=== PATIENT | female | born 1965 | race Caucasian/White ===

== ENCOUNTER 2023-06-27 10:43 | Inpatient (IN) | payer OTHER, MEDICARE, SELFPAY ==
[2023-06-17 08:58] VITALS: BMI 28.3
[2023-06-27] VITALS (10 sets, daily range): BP systolic 103–146; BP diastolic 70–97; PULSE 50–86; RESP 12–20; TEMP 35.9–36.9; O2SAT 93–100; BMI 28.3
--- NOTE | 2023-06-27 | DI.RAD.S_ITS ---
PROCEDURE: XR LUMBAR SPINE 2-3V INDICATIONS: TLIF L4-5 TECHNIQUE: 2 views of the lumbar spine were acquired. COMPARISON: [facility], , LUMBAR SPINE INTERIAMINAR, 04/16/2022, 14:27. [facility], , LUMBAR MBB, 04/08/2023, 8:50. [facility], MR, MR LUMBAR SPINE WITHOUT CONTRAST, 03/14/2023, 17:22. FINDINGS: Bones: Frontal and lateral view show normal alignment established after placement of transverse pedicle screws and intervening dorsal vertical fixation rods with additional interbody disc prosthesis at L 4-5. Soft tissues: Overlying bowel gas pattern is normal. No suspicious soft tissue calcifications. Impression: Normal alignment established after L4-L5 posterior fusion bilaterally and placement of interbody disc prosthesis. Dictated by: Matias Maharaj M.D. on 06/27/2023 at 15:51 Approved by: Matias Maharaj M.D. on 06/27/2023 at 15:54
--- NOTE | 2023-06-27 12:17 | PM.PREOP ---
Pre-operative Note COVID-19 Criteria for continued procedure: Expected advancement of disease process, Possibility delay results in more complex future surgery or treatment, Increased loss of function, Continuing or worsening of significant or severe pain, Deterioration of the patient's condition or overall health and Delay expected to result in less-positive ultimate med/surg outcome Interval Note History & Physical reviewed/Exam performed by Physician: Yes Changes to H&P: No
[2023-06-27] MEDS: CEFAZOLIN 2 GM/100 ML PREMIX 100 ML IV ×2 (13:30→21:20)
--- NOTE | 2023-06-27 13:51 | SUR.OPER ---
Prone on spine table, head in foam head support, padded chest and pelvic supports, gel pad at knees, lower legs supported by pillows; nipples, genitalia and toes free of pressure, arms secured on foam padded arm boards at <90 degrees abduction. Tape over blanket at thigh secured to table.
[2023-06-27] MEDS: BUPIVACAINE 0.25% (PF) 60 ML, EPINEPHrine 0.15 MG INJ (13:56)
--- NOTE | 2023-06-27 15:08 | PM.OP.1 ---
Operative Date/Time/Diagnoses Date of procedure: 06/27/23 Time of procedure: 13:00 Pre-op diagnosis: 1. L4-5 recurrent disc herniation 2. L4-5 post laminectomy syndrome Post-op diagnosis: same Procedure & Clinicians Procedure: 1. L4-5 Postero-lateral and posterior interbody fusion 2. L4-5 interbody cage placement. 3. L4-5 decompressive laminectomy with bilateral facetecomies 4. L4-5 Posterior non-segmental instrumentation 5. [place] of bone marrow from iliac crest 6. Utilization of microsurgical technique and operating microscope Same procedure as scheduled: Yes Indications: Patient has been having chronic back pain and worsening lumbar radiculopathy. Patient had previous history of right L4-5 decompression with good relief. Patient has been having worsening radiculopathy on her right side due to recurrent disc herniation and nerve impingement. Patient failed multiple conservative management with worsening pain weakness and numbness in her lower extremity. Patient has been having difficulty performing activity of daily living. After discussing risks benefits of treatment options, patient elected proceed with surgery. Surgeon: Constanza Tanner Medical/Surgery Registered Nurse: Francine Hendricks Click Yes if Unassisted: No Anesthesia Type: General Operative Notes Closure Type: primary Specimen(s): none sent Prosthetic devices, grafts, tissues, transplants, or devices: Globus CREO MIS screws, Rise cage Estimated Blood Loss (mL): 50 Blood products transfused: none Procedure in detail: Patient was seen in the preoperative area. Risks and benefits of the surgery was discussed with the patient. Informed consent was obtained from the patient and placed in the chart. Surgical site was marked. Patient was taken to the operative room. General anesthesia was administered. Prophylactic antibiotic was given to the patient less than 30 min before the incision was made. Patient was placed into a prone position on the Dante table. Patient's back was then prepped and draped in the sterile fashion. Time-out was performed at this time. Using AP and lateral C-arm imaging the interval between L4-5 was identified and marked on patient's back. A 2 inch incision 2 in from midline was made on the right side first. The fascia was incised in line with skin incision. Globus MARS retractors was placed inside the incision and docked onto the L4 lamina. Using microsurgical technique and operating microscope, a L4 laminectomy and L4-5 facetectomy was performed using a Kerrison rongeur. The laminectomy and facetectomy was performed in order to decompress patient's cauda equina as well as the nerve roots exiting at the L4-5 level. The patient was found have significant amount of epidural scarring from the prior decompression. The scar tissue along with the recurrent disc herniation was carefully resected along with the diskectomy. The disc space at L4-5 was identified. And a total diskectomy was performed at L4-5 level. The endplates were decorticated using a rasp and shaver. The total diskectomy and decortication was performed at L4-5 level in order to to accomplish a L4-5 fusion. The local bone from the laminectomy and facetectomy was saved for local bone grafting. After the total diskectomy and decortication was completed, Trifecta bone graft material was combined with local bone that was harvested earlier. At this time, a separate skin is incision was made over the iliac crest. A Jamshidi needle was inserted into the iliac crest through a separate skin incision. 5 cc of bone marrow aspiration was obtained through the separate skin incision using a Jamshidi needle from the iliac crest. The bone marrow aspiration was combined with local bone and the Trifecta bone grafting material. The bone grafting material was placed into the L4-5 interbody space along with a expandable cage. The cage was expanded to its maximum height using the torque limiting screwdriver. At this time a mirror image incision was made on the left side. The fascia was incised in line with the skin incision. Globus MARS retractor was inserted and docked onto the L4-5 posterolateral gutter. Using the power drill, posterior-lateral decortication was performed at L4-5 level until bleeding cortical bone was identified. The remaining bone grafting material was placed into the L4-5 posterior lateral gutter he order to accomplish posterolateral fusion at the L4-5 level. Using the double C-arm technique, pedicle screws were placed into the L4-5 pedicles bilaterally. This was done by placing the Jamshidi needle into the pedicles, then placing the guidewires over the Jamshidi needle, and finally placing the cannulated screws over the guidewires bilaterally. After the pedicle screws were placed, 2 titanium rods was locked into the heads of the pedicle screws using locking caps and torque limiting screwdriver. After all the hardware was placed, and confirmed with AP and lateral C-arm imaging, the wound was then irrigated with sterile normal saline and packed with Ray-Jose L gauze for 3 min to accomplish hemostasis. After the gauze was removed the deep fascia was closed with #1 Vicryl suture. The subcutaneous layer was closed with 2-0 Vicryl. The skin was closed with skin floyd. Patient tolerated the procedure well. There were no complications. The Operation could not have been safely performed without compromising the technical result or length of the procedure, without the assistance of a skilled operating room surgical technician. The operating room surgical technician was medically necessary for proper positioning, retraction and manipulation of instruments, proper exposure, surgical preparation, and manipulation of tissue. Complications: none Post-operative Condition: stable Disposition: PACU Plan for aftercare: Admit to inpatient hospital
[2023-06-27] MEDS: HYDROMORPHONE 1 MG INJ IV ×2 (15:21→15:31)
[2023-06-27] MEDS: hydrOXYzine 50 MG/ML INJ 25 MG IM (15:39)
[2023-06-27] MEDS: fentaNYL 100 MCG/2 ML INJ IV (15:46)
[2023-06-27] MEDS: OXYCODONE/ACETAMINOPHEN 5/325 TABLET 1 TAB PO (15:50)
[2023-06-27] MEDS: ONDANSETRON 4 MG/2 ML INJ IV (15:52)
--- NOTE | 2023-06-27 16:15 | SUR.PHASEI ---
Patient has to be woken up to get pain score. Patient too drowsy and has too much respiratory depression to safely administer more pain medications at this time. Patient still states pain is 8/10 when aroused by voice.
[2023-06-27] MEDS: LACTATED RINGERS 1,000 ML 125 ML IV (16:35)
[2023-06-27] MEDS: OXYCODONE IR 10 MG TABLET PO ×3 (17:01→23:17)
--- NOTE | 2023-06-27 18:29 | PC.NURSE ---
Patient arrived from PACU at 1615 this afternoon. She is slightly lethargic but A&OX4, VSS on 2LNC. Dressing to low back c/d/i. Spouse at bedside supportive. Patient denies numbness and tingling to BLE's ( at baseline left lower extremity numbess > RLE). Patient tolerates dinner well and is able to stand at bedside without dizziness and void x1 large void. Call light in reach, instructed on IS, IVF LR @ 125 ml/hr, bed alarm on. Continuous monitoring.
[2023-06-27] MEDS: ACETAMINOPHEN 325 MG TABLET 650 MG PO (19:01)
[2023-06-27] MEDS: CYCLOBENZAPRINE 10 MG TABLET PO (19:04)
[2023-06-27] MEDS: DOCUSATE 100 MG CAPSULE PO (20:14)
[2023-06-27] MEDS: ATORVASTATIN 20 MG TABLET PO (20:14)
[2023-06-27] MEDS: ARIPiprazole 10 MG TABLET PO (20:14)
[2023-06-27] MEDS: SENNOSIDES 8.6 MG TABLET 17.2 MG PO (20:15)
[2023-06-27] MEDS: hydrOXYzine pamoate 25 MG CAPSULE PO ×2 (20:15→23:46)
[2023-06-27] MEDS: ESCITALOPRAM 10 MG TABLET 20 MG PO (20:15)
[2023-06-28] MEDS: hydrOXYzine pamoate 25 MG CAPSULE PO ×3 (02:59→12:07)
[2023-06-28] MEDS: OXYCODONE IR 10 MG TABLET PO ×3 (02:59→12:07)
[2023-06-28] MEDS: ACETAMINOPHEN 325 MG TABLET 650 MG PO ×2 (02:59→12:06)
[2023-06-28] MEDS: LACTATED RINGERS 1,000 ML 125 ML IV (04:29)
[2023-06-28] MEDS: CYCLOBENZAPRINE 10 MG TABLET PO ×2 (04:45→12:07)
[2023-06-28 05:00] VITALS: RESP 20; TEMP 37.7
[2023-06-28] MEDS: HYDROMORPHONE 0.5 MG INJ IV (05:23)
[2023-06-28] MEDS: CEFAZOLIN 2 GM/100 ML PREMIX 100 ML IV (05:24)
[2023-06-28] MEDS: PANTOPRAZOLE DR 40 MG TABLET PO (05:26)
[2023-06-28 07:42] VITALS: O2SAT 98
[2023-06-28] MEDS: DOCUSATE 100 MG CAPSULE PO (07:52)
[2023-06-28 08:00] VITALS: BP 129/72; PULSE 109; RESP 17; TEMP 36.8; O2SAT 92
--- NOTE | 2023-06-28 09:38 | PT.IIE ---
Current Diagnoses Other intervertebral disc displacement, lumbar region (06/27/23) Postlaminectomy syndrome, not elsewhere classified (06/27/23) Surgery Performed Operation Date: 06/27/23 12:15 Actual Procedures p L4-5 TLIF - Constanza Tanner MD Surgical History (Last Reviewed 06/28/23 @ 10:54 by Francine Hendricks PA-C) H/O toe surgery History of appendectomy (~1983) History of left salpingo-oophorectomy (~1997) History of surgery S/p bilateral carpal tunnel release S/P colonoscopic polypectomy (~2021) S/P exploratory laparotomy Medical History (Last Reviewed 06/28/23 @ 10:54 by Francine Hendricks PA-C) Asthma Easy bruising GERD (gastroesophageal reflux disease) History of alcohol abuse History of anxiety History of attention deficit disorder History of depression Hyperlipemia Hypothyroid Mitral valve regurgitation Type 2 diabetes mellitus Physical Therapy Inpatient Evaluation/Re-Eval M1 PT/OT-IP Prior Functional Status Start: 06/28/23 12:50 Freq: NEEDED Status: Active Protocol: Document 06/28/23 09:38 AB (Rec: 06/28/23 13:12 AB [email or web address]) Medical Review Prior Functional Status Medical History Reviewed Yes Communication able to make needs known but requires time to respond to questions and follow instructions Mobility and Gait significant other in room and provided pt's PLOF info and home set up: stated that pt is modified independent with all mobilities and ambulation wtihotu AD; leans on shopping cart for support when out doing groceries due to back pain Social History Household Members significant other Living Arrangements RV Number of Stairs To Enter/Railing? 3 steps L grab bar next to door frame to enter the house Home Environment Standard Height Toilet,Walk in Shower Home Equipment Front Wheel Walker,Straight Cane,Hand Held Shower Employment Status Unemployed Additional Social History Comment significant other stated that his mother lives next door and if needed, pt can go to his mother's house with a ramp to enter M2 PT-IP Current Condition Start: 06/28/23 12:50 Freq: NEEDED Status: Active Protocol: Document 06/28/23 09:38 AB (Rec: 06/28/23 13:12 AB [email or web address]) Physical Therapy Current Condition Current Condition Evaluation Date 06/28/23 Treatment Diagnosis s/p L4-5 TLIF; difficulty in walking Onset Date 06/27/23 M3 PT-IP Subjective Start: 06/28/23 12:50 Freq: NEEDED Status: Active Protocol: Document 06/28/23 09:38 AB (Rec: 06/28/23 13:12 AB [id number]) Subjective Physical Therapy Visit Type Type Initial Evaluation Visit Start Time 09:38 Visit Stop Time 11:38 Total Visit Minutes 45 Notes pt seen for split visits: 938- 945am and 11-1138 Number of CONTACT FINGER ASSEMBLER Visits 0 Physical Therapy Visit Comments Patient Comments agreeable to do PT; pt is sleepy and needs cues to stay awake Therapy Pain Assessment Pain When Pain Assessed At Rest Pain Present Pain Present Pain Reported Location Lower Back Scale Used pain scale not stated M4 PT-IP Mobility and Gait Start: 06/28/23 12:50 Freq: NEEDED Status: Active Protocol: Document 06/28/23 09:38 AB (Rec: 06/28/23 13:12 AB [id number]) PT-Bed Mobility Assessment Rolling Type of Rolling Log Rolling Level of Assist Minimal Assistance Supine to Sit Supine to Sit Minimal Assistance PT-Transfer Assessment Sit to and From Stand Sit to and from Stand Minimal Assistance,1 Person Assistance,Use of Upper Extremities Equipment Transfer Assistive Device Gait Belt,Front Wheeled Walker Orthotic/Prosthetic Devices or Brace: No Transfers Transfer Destination Toilet Transfer Technique ambulated Transfer Ability Level of Assist Minimal Assistance,1 Person Assistance,Use of Upper Extremities Comments Mobility Comments pt supine in bed. SO in room with pt. educated pt and SO regarding back precautions and log roll bed mobility. pt continues to be sleepy and needs increase time to respond and follow instructions. pt completed supine to sit log roll min A and max cues. able to sit on EOB SBA. pt requested to use the toilet. completed sit to stand min A and ambulated to the toilet using FWW min A ~ 15 ft. completed sit to stand using grab bar CGA to min A and max cues. ambulated using FWW towards the sink. able to maintain standing leaning against the counter CGA while completing handwashing. pt agreed to ambulate more in room and completed ~ 30 ft using FWW CGA to min A. pt agreed to sit up on the chair. positioned on the chair. call light and table placed within reach. caregiver training set up with spouse at ~ 130pm today. Gait Assessment Gait Gait Assistance Required: Contact Guard Assist,Minimum Assistance Distance (Feet) 30 Able to Maintain Weight Bearing Status Yes During Gait Assistive Devices Assistive Device Gait Belt,Front Wheeled Walker Orthotic/Prosthetic Devices or Brace: No Gait Deviations General Gait Pattern Decreased Stride Length, Decreased Feet Clearance,Step- to Gait Factors Limiting Gait Function Factors Limiting Gait Function Decreased Activity Tolerance, Decreased Sensation,Decreased Strength,Difficulty Following Directions,Limited Range of Motion,Pain,Poor Balance,Poor Safety Awareness PT-Balance Assessment Sitting Balance and Reactions Static Sitting Balance Ability Good Dynamic Sitting Balance Ability Good Standing Balance and Reactions Static Standing Balance Ability Fair Dynamic Standing Balance Ability Fair Device Used FWW M5 PT-IP Objective Assessments Start: 06/28/23 12:50 Freq: NEEDED Status: Active Protocol: Document 06/28/23 09:38 AB (Rec: 06/28/23 13:12 AB [email or web address]) Orientation Orientation/Cognition Level of Alertness Lethargic Orientation Name Language Function Ability No Deficits Noted Safety Awareness Decreased Safety Awareness Memory Description Short Term Impaired Gross Range of Motion Lower Extremity ROM Assessment Within Functional Limits Strength Lower Extremity Strength Assessment Right Impaired Hip 3+/5 Knee 4-/5 Sensation Assessment Sensation Gross Sensation Right LE Impaired Comments Sensation Comments c/p B lower leg tingling/ numbness: chronic per pt Muscle Tone Muscle Tone WNL Yes M6 PT-IP Treatment Start: 06/28/23 12:50 Freq: NEEDED Status: Active Protocol: Document 06/28/23 09:38 AB (Rec: 06/28/23 13:12 AB [email or web address]) Physical Therapy Treatment Education Education Provided Precautions,Weight Bearing Status,Post-Op Packet,Safety M7 PT-IP Assessment and Plan Start: 06/28/23 12:50 Freq: NEEDED Status: Active Protocol: Document 06/28/23 09:38 AB (Rec: 06/28/23 13:12 AB [email or web address]) PT Summary Assessment and Plan Potential Rehabilitation Potential Fair Status of Condition at Evaluation Evolving Summary Impairments Pain,ROM,Strength,Balance, Coordination,Sensation,Tone, Cognition,Bed Mobility, Transfers,Gait,Activity Tolerance Assessment Summary pt is a 58 y/o female who has chronic back pain and underwent L4-5 TLIF. pt is agreeable to do PT but seems to be sleepy/lethargic needing increase cues for safety. pt currently requires min A for bed mobility and CGA to min A for ambulation using FWW. needs max cues with all tasks. Pt lives with her significant other and will be able to assist pt. caregiver training set up this afternoon . stair climbing training also will be completed prior to d/c. will continue to assess. Goals Bed Mobility Goal Independent Transfer Goal Independent,Front Wheeled Walker Gait Goal Independent,Front Wheel Walker Gait Distance 250 Other Goals up/down 3 steps SPB/MODEL AND MOLD MAKER CGA Days to Meet Goals 5 Frequency of Treatment Frequency Of Treatment Twice a Day Treatment Plan Physical Therapy Treatment Plan Bed Mobility Training,Transfer Training,Gait Training, Therapeutic Exercise,Balance Retraining,Post Op Education, Discharge Planning,Hot or Cold Pack,Neuromuscular Re-ed, Coordination Retraining,Manual Therapy Precautions Lumbar Precautions Log Roll,No Twisting,Limit Bending,Lifting Restriction of 10 lbs,Gait Belt above Incisional Area Recommendations To Nursing Amount of Assist Needed 1 Person Assist Discharge Recommendations PT Discharge Recommendations Home with 05/05 Assist Available Transportation Needs at Discharge Private Vehicle
--- NOTE | 2023-06-28 10:52 | PM.DS.1 ---
History of Present Illness History of Present Illness Date Patient Seen: 06/28/23 Chief complaint: TLIF Narrative: Patient is resting comfortably in bed this morning with spouse at bedside. She states she is doing well. She has had pain, though it is well-controlled with medication at this time. Patient notes that she has not worked with physical therapy, though she has been log rolling in bed, sat at the edge of bed, and been up to the commode with no issue. Denies numbness and tingling to the distal extremities, denies nausea and vomiting. Discharge Providers Provider Date of admission: 06/27/23 10:43 Discharge Date: 06/28/23 Consults: 06/27/23 16:25 Consult to Occupational Therapy Evaluate & Treat Comment: Physician Instructions: Evaluate and treat Consult to Physical Therapy Evaluate & Treat Comment: Physician Instructions: Evaluate and Treat Discharge provider: Francine Hendricks PA-C Summary Hospital Course Discharge Diagnosis: Status post 1 level TLIF Hospital Course: Operative Date/Time/Diagnoses Date of procedure: 06/27/23 Time of procedure: 13:00 Pre-op diagnosis: 1. L4-5 recurrent disc herniation 2. L4-5 post laminectomy syndrome Post-op diagnosis: same Procedure & Clinicians Procedure: 1. L4-5 Postero-lateral and posterior interbody fusion 2. L4-5 interbody cage placement. 3. L4-5 decompressive laminectomy with bilateral facetecomies 4. L4-5 Posterior non-segmental instrumentation 5. [place] of bone marrow from iliac crest 6. Utilization of microsurgical technique and operating microscope Same procedure as scheduled: Yes Indications: Patient has been having chronic back pain and worsening lumbar radiculopathy.? Patient had previous history of right L4-5 decompression with good relief.? Patient has been having worsening radiculopathy on her right side due to recurrent disc herniation and nerve impingement. Patient failed multiple conservative management with worsening pain weakness and numbness in her lower extremity.? Patient has been having difficulty performing activity of daily living.? After discussing risks benefits of treatment options, patient elected proceed with surgery. Surgeon: Constanza Tanner Technical Services Manager: Francine Hendricks Click Yes if Unassisted: No Anesthesia Type: General Operative Notes Closure Type: primary Specimen(s): none sent Prosthetic devices, grafts, tissues, transplants, or devices: Globus CREO MIS screws, Rise cage Estimated Blood Loss (mL): 50 Blood products transfused: none Exam Vital Signs (past 8 hours): - 06/28/23 05:00 06/28/23 07:42 06/28/23 08:00 Temperature 99.8 F H 98.3 F Pulse Rate 109 H Respiratory Rate 20 17 Blood Pressure 129/72 Pulse Oximetry 98 92 Oxygen Delivery Method Nasal Cannula Oxygen Flow Rate 1 0 06/28/23 07:45 Temperature Pulse Rate Respiratory Rate Blood Pressure Pulse Oximetry Oxygen Delivery Method Room Air Oxygen Flow Rate Oxygen Delivery Method Room Air Oxygen Flow Rate 0 PFSH Medical History Asthma Easy bruising GERD (gastroesophageal reflux disease) History of alcohol abuse History of anxiety History of attention deficit disorder History of depression Hyperlipemia Hypothyroid Mitral valve regurgitation Type 2 diabetes mellitus Surgical History H/O toe surgery History of appendectomy (~1983) History of left salpingo-oophorectomy (~1997) History of surgery S/p bilateral carpal tunnel release S/P colonoscopic polypectomy (~2021) S/P exploratory laparotomy Social History household members: significant other Smoking Status: Former smoker alcohol intake: never Discharge Assessment & Plan Assessment and Plan Assessment: Patient is progressing as expected following 1 level TLIF, postop day 1. She has had some pain, but states that it is well controlled with medication. Plan of Treatment: Continue multimodal pain regimen. Discharge home with assistance from spouse when safe and cleared by physical therapy. Follow up with Orthopedics 2 weeks after surgery. Discharge Plan Discharge Plan Patient Disposition: Home Provider Discharge Comment: Discharge home with assistance from spouse when safe and cleared by PT Discharge orders & Medications Prescriptions: New oxycodone 5 mg tablet 5 mg PO Q4H PRN (Reason: pain) Qty: 40 0RF cyclobenzaprine 10 mg Tablet 10 mg PO TID PRN (Reason: muscle spasms) Qty: 40 0RF Continued atorvastatin 20 mg Tablet 20 mg PO BEDTIME propranolol 60 mg Capsule,Extended Release 24 Hr 60 mg PO BEDTIME omeprazole 40 mg Capsule,Delayed Release(Dr/Ec) 40 mg PO DAILY levothyroxine 50 mcg Tablet 50 mcg PO DAILY escitalopram oxalate 20 mg Tablet 20 mg PO BEDTIME aripiprazole 10 mg Tablet 10 mg PO BEDTIME ramelteon 8 mg Tablet 8 mg PO BEDTIME Ozempic 0.25 mg or 0.5 mg (2 mg/3 mL) Pen Injector 0.25 mg SUBCUT QWEEK Patient Comments: Sundays Rx Instructions: for 4 weeks valacyclovir 1 gram Tablet 1,000 mg PO BID Rx Instructions: 1 tablet by mouth bid for 3 days sumatriptan succinate [Imitrex] 100 mg Tablet 100 mg PO Q2-4H PRN (Reason: Headache) Rx Instructions: do not exceed 2 doses per 24 hrs ondansetron HCl [Zofran] 8 mg Tablet 8 mg PO Q8H prochlorperazine maleate 10 mg Tablet 10 mg PO TID PRN (Reason: Nausea) Patient Comments: If Zofran does not work with migraine med spironolactone 25 mg Tablet 25 mg PO DAILY PRN (Reason: Edema) methocarbamol 750 mg Tablet 750 mg PO QID ibuprofen 600 mg Tablet 600 mg PO QID PRN (Reason: pain) cyclosporine [Restasis] 0.05 % Dropperette 1 drp EYE-BOTH BID Changed acetaminophen 500 mg Tablet 1,000 mg PO Q8H PRN (Reason: pain) Qty: 60 0RF Discontinued cyclobenzaprine 10 mg Tablet 10 mg PO TID Patient Comments: for migraines, took months ago Diet/Activity/Treatments Diet: Diet as Tolerated Activity: Up and walking as tolerated. No deep bending, twisting, no lifting over 10 pounds. Skin/Wound/Dressing Care Report to your healthcare provider any signs of infection, such as:: chills, fever, night sweats, unusual drainage and unusual redness Dressing: Keep dressing clean and dry. If it becomes saturated you may replace bandage with dry gauze. Visit Report/Discharge Packet Instructions: DI for Transforaminal Lumbar Interbody Fusion Stand Alone Forms: Patient Portal/API, Stroke Signs & Symptoms, Surgery Discharge
--- NOTE | 2023-06-28 13:08 | CM.DANOTE ---
DCP: Chart review for case, met with patient at bedside, they agree to case management assessment. Completed DCP assessment based on information available. Patient is a 58 year old admitted for planned lumbar fusion with Dr. Tanner. Life partner Sterling is at bedside who plans to be driver operator, support and take care of all sr. consultant while she is recovering. PCP: Mounika Grossman Payer: Lucy ROJAS DME: FWW, cane DCP: Home with supportive SO. Pending PT eval today. Haydee Hickman RN, CM Discharge Planning/Care Management CM Discharge Assessment Start: 06/28/23 13:06 Freq: Status: Active Protocol: Document 06/28/23 13:06 BQ (Rec: 06/28/23 13:08 BQ [id number]) Discharge Planning Assessment Assigned Political Science Instructor Haydee Hickman RN, CM Advance Directives? No: having new one made History Provided By Patient,Significant Other Has Patient been admitted in last 30 No days? Prior Living Arrangements Mobile home Household Members significant other Type of transporation used prior to Drives own vehicle admit Independent with ADL's Yes Is patient alert and oriented? Yes Caregiver for Another No DME Already Rented / Owned FWW / Walker,Cane Barriers to Discharge No Discharge Plan Home Community Services Physical Therapy Referrals Initiated None needed Whiteboard Updated in Patient Room with Yes name and ext. # of Political Science Instructor Review Status In Process Next Review Type Continued Stay Review Pre-Anesthesia Assessment Start: 06/17/23 08:58 Freq: Status: Active Protocol: Document 06/17/23 08:58 TC (Rec: 06/17/23 09:51 TC [id number]) Pre-Anesthesia Assessment Preferred Name Nargis Patient Information Reviewed Via Phone Assessment Assessment Completed With Patient Primary Care Provider hazel Medical Clearance Received Not Applicable Seen Specialist in Last 12 Months Yes Specialist Seen Helper Coordinator,Opthamologist/ Hand Chain Maker,Orthopedist Primary Language Cypriot Preferred Language Cypriot Dry Wall Applicator Required No Height 165.1 cm Weight 77.111 kg Body Mass Index (BMI) 28.3 Hearing Ability Normal Visual Impairment No Limitations Visual Assist Magnifying Glass Dentition Type Teeth, Natural Present,Dental Implants Barriers to Learning None Other Aids No Hx Anesthesia Reactions Yes: PONV- extreme, hx of aspiration with propofol Hx Family Anesthesia Reaction No Hx Malignant Hyperthermia No Hx Blood Transfusions No Hx Blood Transfusion Reaction No Anesthesia Review Requested No 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 No Does patient have RICH/SOB No Hx Sleep Apnea No Currently Taking a Beta [place] Yes: propanalol for headaches Can You Climb a Flight of Stairs Without Yes SOB Hx Chest Pain No Hx SOB No Hx Syncope or Dizziness No Anti-Coagulant Therapy No Has a Supervisor Phosphorus Processing No Cardiac Testing No Hx Pacemaker/ICD No Pacemaker Rep Required? No Cardiac Clearance Received Not Applicable Gastrointestinal Symptoms Constipation,Reflux Chronic UTI No Bladder Pattern Incontinent, Stress Urinary Catheter Present No Hx Urinary Self Catheterization No Diabetes Yes HgbA1C 7.0 Date 06/10/23 Patient No Lactating No Hx Drug Resistant Organism No Presence of External or Internal Medical Yes: teeth, surgical floyd Devices in abdomen Have you had any close contact with No someone diagnosed with COVID-19? Are you experiencing any of these No symptoms symptoms? Evaluation/Screening for possible COVID- Yes 19 infection completed? Received a COVID vaccine? Yes Marital Status seperated Lives With significant other Current Living Arrangements RV Number of Floors (Floors) One Floor Number of Stairs To Enter/Railing? 4 with rail Support System Child/Children,Family, Significant Other Does the Patient Have Assistance After Yes Surgery Patient Discharge Plan Description Return Home Feels Safe in Current Environment Yes Been Physically Hurt or Threatened By a No Person in Current Environment Do you have thoughts of harming yourself None or others? Are you currently considering suicide? No Do you have a plan to hurt yourself or No Plan others? Do You Have Any Spiritual Beliefs That No May Affect Your HC Choices? Do You Have Any Cultural Practices That No May Affect Your HC Choices? Health Care Proxy/Next of Kin Otoniel (dtr) Health Care Proxy Emergency Contact Name Sterling (s/o) Emergency Contact Advance Directives? No: having new one made PAC Instructions Assistance for 24 hours post- op,Diabetes instructions,Do not shave/clip surgical site, Durable medical equipment, Medications to take/avoid, Nasal antibiotic,No ETOH/ petroleum product on skin DOS, NPO,Post-op transportation,Pre -surgical wash,Sturdy shoes/ comfortable clothes,Do not bring valuables and remove jewelry
--- NOTE | 2023-06-28 13:30 | PT.IPTN ---
Current Diagnoses Other intervertebral disc displacement, lumbar region (06/27/23) Postlaminectomy syndrome, not elsewhere classified (06/27/23) Surgery Performed Operation Date: 06/27/23 12:15 Actual Procedures p L4-5 TLIF - Constanza Tanner MD Physical Therapy Treatment Note M2 PT-IP Current Condition Start: 06/28/23 12:50 Freq: NEEDED Status: Active Protocol: Document 06/28/23 09:38 AB (Rec: 06/28/23 13:12 AB [id number]) Physical Therapy Current Condition Current Condition Evaluation Date 06/28/23 Treatment Diagnosis s/p L4-5 TLIF; difficulty in walking Onset Date 06/27/23 M3 PT-IP Subjective Start: 06/28/23 12:50 Freq: NEEDED Status: Active Protocol: Document 06/28/23 13:58 TS (Rec: 06/28/23 14:14 TS [id number]) Subjective Physical Therapy Visit Type Type Treatment Note Visit Start Time 13:30 Visit Stop Time 13:55 Total Visit Minutes 25 Number of MINE ADMINISTRATOR SUPERVISOR Visits 1 Physical Therapy Visit Comments Patient Comments Pt found in bed, reports pain is better and 5/10, spouse in room for caregiver training. Therapy Pain Assessment Pain When Pain Assessed At Rest Pain Present Pain Present Pain Reported Location Lower Back Intensity 5 Scale Used Numeric (0 - 10) M4 PT-IP Mobility and Gait Start: 06/28/23 12:50 Freq: NEEDED Status: Active Protocol: Document 06/28/23 13:58 TS (Rec: 06/28/23 14:14 TS [id number]) PT-Bed Mobility Assessment Rolling Type of Rolling Log Rolling Level of Assist Standby Assistance Supine to Sit Supine to Sit Standby Assistance Scooting Scooting to Edge of Bed Standby Assistance PT-Transfer Assessment Sit to and From Stand Sit to and from Stand Contact Guard Assistance,1 Person Assistance,Use of Upper Extremities Equipment Transfer Assistive Device Gait Belt,Front Wheeled Walker Orthotic/Prosthetic Devices or Brace: No Comments Mobility Comments Pt recalled 2/3 precautions prior to mobility(bending). Logroll to R side SBA, provided cues for handrail assist. Supine to sit SBA with BUE support, pt demonstrated good carryover of sequencing. SO donned gait belt prior to sit to stand. Sit to stand with FWW CGA from SO, pt has good standing balance with no retroleaning, she denied any dizziness. She ambulated ~200' CGA w/FWW, pt is unsteady but has no buckling or LOB, denied dizziness, instructed spouse on proper handplacement on gait belt. She performed stairs x6 SBA/CGA from SO with B handrail support, cues were provided for step sequencing. Pt ambulated back to room, stand to sit into chair CGA from SO, cues provided were UE support on arms of chair for slow eccentric control. Pt was left in chair with SO in room , RN notified. Gait Assessment Gait Gait Assistance Required: Contact Guard Assist,1 Person Assist Distance (Feet) 200 Able to Maintain Weight Bearing Status Yes During Gait Assistive Devices Assistive Device Gait Belt,Front Wheeled Walker Orthotic/Prosthetic Devices or Brace: No Gait Deviations General Gait Pattern Decreased Stride Length, Decreased Feet Clearance,Step- to Gait Factors Limiting Gait Function Factors Limiting Gait Function Decreased Activity Tolerance, Decreased Sensation,Decreased Strength,Limited Range of Motion,Pain,Poor Balance,Poor Safety Awareness Comments Gait Comments See mobility comments. Stair Climbing Assessment Evaluation Level of Assist On Stairs Standby Assistance,Contact Guard Assistance,1 Person Assistance Devices Stair Climbing Assistive Devices Left Railing,Right Railing Technique/Endurance Stair Climbing Direction Ascend and Descend Stair Climbing Technique Step to Step Number of Steps Climbed 6 Comments Stair Climbing Comments See mobility comments PT-Balance Assessment Sitting Balance and Reactions Static Sitting Balance Ability Good Dynamic Sitting Balance Ability Good Standing Balance and Reactions Static Standing Balance Ability Good Dynamic Standing Balance Ability Fair Device Used FWW M5 PT-IP Objective Assessments Start: 06/28/23 12:50 Freq: NEEDED Status: Active Protocol: Document 06/28/23 09:38 AB (Rec: 06/28/23 13:12 AB [id number]) Orientation Orientation/Cognition Level of Alertness Lethargic Orientation Name Language Function Ability No Deficits Noted Safety Awareness Decreased Safety Awareness Memory Description Short Term Impaired Gross Range of Motion Lower Extremity ROM Assessment Within Functional Limits Strength Lower Extremity Strength Assessment Right Impaired Hip 3+/5 Knee 4-/5 Sensation Assessment Sensation Gross Sensation Right LE Impaired Comments Sensation Comments c/p B lower leg tingling/ numbness: chronic per pt Muscle Tone Muscle Tone WNL Yes M6 PT-IP Treatment Start: 06/28/23 12:50 Freq: NEEDED Status: Active Protocol: Document 06/28/23 13:58 TS (Rec: 06/28/23 14:14 TS [id number]) Physical Therapy Treatment Education Education Provided Precautions,Weight Bearing Status,Post-Op Packet,Safety M7 PT-IP Assessment and Plan Start: 06/28/23 12:50 Freq: NEEDED Status: Active Protocol: Document 06/28/23 13:58 TS (Rec: 06/28/23 14:14 TS [id number]) PT Summary Assessment and Plan Potential Rehabilitation Potential Good Summary Impairments Pain,ROM,Strength,Balance, Coordination,Sensation,Tone, Cognition,Bed Mobility, Transfers,Gait,Activity Tolerance Progress Towards Goals Progressing Toward Goals Assessment Summary Francine is progressing well with her mobility this session . She is SBA for logroll and supine to sit with minimal cueing. She performed sit to stand x1 CGA from SO w/FWW, she has good static standing balance. She progressed her gait to ~200 CGA w/FWW, she is unsteady with gait but has no buckling or LOB. She progressed to stairs x6 SBA/ CGA. PT is recommending return home with 24/7 assist from SO . SO did well with pt, he provided good cueing for mobility and her spinal precautions. Goals Bed Mobility Goal Independent Transfer Goal Independent,Front Wheeled Walker Gait Goal Independent,Front Wheel Walker Gait Distance 250 Other Goals up/down 3 steps SPB/DIGITAL PUBLISHING SPECIALIST CGA Days to Meet Goals 5 Frequency of Treatment Frequency Of Treatment Twice a Day Treatment Plan Physical Therapy Treatment Plan Bed Mobility Training,Transfer Training,Gait Training, Therapeutic Exercise,Balance Retraining,Post Op Education, Discharge Planning,Hot or Cold Pack,Neuromuscular Re-ed, Coordination Retraining,Manual Therapy Precautions Lumbar Precautions Log Roll,No Twisting,Limit Bending,Lifting Restriction of 10 lbs,Gait Belt above Incisional Area Recommendations To Nursing Amount of Assist Needed 1 Person Assist Discharge Recommendations PT Discharge Recommendations Home with 24/7 Assist Available Transportation Needs at Discharge Private Vehicle
--- NOTE | 2023-06-28 14:49 | PC.NURSE ---
Addendum entered by Samaria Aguirre R.N. 06/28/23 15:01: Dressing to low back was changed prior to d/c to coversite. Both incisions are stapled, no drainage, minimal redness, edges approx. They were given one extra dressing until they could get more. Wound care instructions explained. Original Note: Discharge: Seen by PT a second time and she is safe to d/c to home. Received d/c instructions from PA this am. Has been voiding w/out problems. Tolerates diet w/out problems. Discussed exparel she received for pain. Po pain meds have been effective. D/c packet given and reviewed. Rx has been esent. Questions answered. Pt d/c to home via auto w/S.O. They voiced no concerns.
== END 2023-06-28 14:25 | disposition home or self-care (01) | DRG 455 ==
PROVIDERS: Admitting Provider Orthopaedic Surgery Orthopaedic Surgery of the Spine; Referring Provider Orthopaedic Surgery Orthopaedic Surgery of the Spine; Visit Provider Orthopaedic Surgery Orthopaedic Surgery of the Spine
PROC: 0SG00AJ Fusion of Lumbar Vertebral Joint with Interbody Fusion Device, Posterior Approach, Anterior Column, Open Approach (ICD-10-PCS; principal; 2023-06-27 12:15)
DX: M96.1 Postlaminectomy syndrome, not elsewhere classified (principal); M48.062 Spinal stenosis, lumbar region with neurogenic claudication; M51.16 Intervertebral disc disorders with radiculopathy, lumbar region
CPT/HCPCS: 72100; 76000; 82962; 94762; 97116; 97162; 97530; J0171; J0690; J1100; J1170; J2250; J2405; J2704; J3010; J3410